=== PATIENT | female | born 1995 | race Caucasian/White ===

== ENCOUNTER 2022-12-01 10:37 | Emergency (ER) | payer OTHER, SELFPAY ==
[2022-12-01 10:49] VITALS: BP 171/107; PULSE 85; RESP 18; TEMP 36.5; O2SAT 99; BMI 43.4
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
[2022-12-01 12:46] LABS: Basophils % 0.3 %; Eosinophils # 0.1 10^3/uL (0.0-0.8); Eosinophils % 0.8 %; Hemoglobin 14.2 g/dL (11.5-15.3); Lymphocytes # 2.6 10^3/uL (0.8-4.8); Lymphocytes % 22.1 %; Mean Corpuscular HGB Conc 31.6 g/dL (30.0-36.0); Mean Corpuscular Hemoglobin 27.2 pg (28.0-34.0); Mean Platelet Volume 8.7 fL (7.4-10.4); Monocytes # 0.5 10^3/uL (0.2-0.9); Monocytes % 4.5 %; Neutrophils # 8.48 10^3/uL (1.8-7.7); Nucleated Red Blood Cells % 0 %; Platelet Count 324 10^3/cmm (130-400); Red Blood Count 5.23 10^6/uL (4.1-5.3); White Blood Count 11.8 10^3/uL (4.0-10.0)
[2022-12-01 12:53] LABS: Add Urine Microscopic? YES; Bilirubin Urine Neg (Negative); Blood Urine 2+ (Negative); Glucose Urine UA Norm (Normal); Ketones Urine Negative (Negative); Leukocyte Esterase Urine Negative (Negative); Nitrate Urine Negative (Negative); Protein Urine Neg (Negative); Urine Appearance Clear (CLEAR); Urine Color Yellow (Yellow); Urobilinogen Urine Norm (Negative); pH Urine 7 (5-7)
[2022-12-01 12:55] LABS: Bacteria Urine TRACE /hpf; Mucus Urine TRACE /hpf; RBC Urine 0-4 /hpf (0-2); Squamous Epithelial Cell Urine RARE /hpf (0-5)
[2022-12-01 12:56] LABS: Add Urine Culture? No
--- NOTE | 2022-12-01 13:04 | USR_ITS ---
PROCEDURE INFORMATION: Exam: US First Trimester, Transabdominal Exam date and time: 12/01/2022 1:47 PM Age: 27 years old Clinical indication: Lmp or gestational age (in weeks): 09/08/2022; Other: Vag bleed; ; Additional info: Cramping, vaginal discharge with clots LABS AND CLINICAL REPORTS: Last menstrual period start date: 09/08/2022 Gestational age (Established): 12 w 0 d Estimated due date (Established): 06/15/2023 TECHNIQUE: Imaging protocol: Real-time transabdominal obstetrical ultrasound of the maternal pelvis and a first trimester , less than 14 weeks 0 days, with image documentation. COMPARISON: No relevant prior studies available. FINDINGS: GESTATION: Gestation: No sign of intrauterine . No visible ectopic. Embryonic/ heart rate: Sought but not present. Amniotic fluid: Sought but not present. MATERNAL: Uterus: The uterus is anteverted. Contours are normal. The uterus measures 9.6 x 4.7 x 3.5 cm. The endometrium is thin and homogeneous. Endometrial stripe thickness is 3 mm. There is no intrauterine gestational sac. Cervix: Unremarkable. Right adnexa: Right ovary measures 3.4 cm x 2.2 cm x 2.7 cm. The right ovary is morphologically normal. Left adnexa: Left ovary measures 3.6 cm x 2.5 cm x 3 cm. The left ovary is morphologically normal. Urinary bladder: The bladder is unremarkable. US/US OB <= 14 weeks fetus [id number] IMPRESSION: No intrauterine gestational sac. Spontaneous versus ectopic . No ectopic is visible. Ectopic is not excluded. Recommend continued follow-up beta hCG and repeat ultrasound if necessary for confirmation.
[2022-12-01 13:24] VITALS: O2SAT 98
--- NOTE | 2022-12-05 11:12 | DCPLANNER ---
Addendum entered by Torie Bowens 12/05/22 13:13: shopper marketing manager called patient due to no primary care physician - no answer at this time Original Note: 12.04.22 - TCM called patient due to no primary care physician - no answer at this time
== END 2022-12-01 15:12 | disposition home or self-care (01) ==
PROVIDERS: Emergency Medicine; Emergency Provider Emergency Medicine
DX: O26.851 Spotting complicating pregnancy, first trimester (principal); O20.0 Threatened abortion; Z3A.08 8 weeks gestation of pregnancy
CPT/HCPCS: 36415; 76801; 81001; 84702; 85025; 86850; 86900; 87210; 87491; 87591; 99284

== ENCOUNTER → 2022-12-05 08:02 | Outpatient (BNVA) | payer OTHER, SELFPAY | PROVIDERS: Visit Provider Nurse Practitioner Women's Health | DX: N97.0 Female infertility associated with anovulation | CPT/HCPCS: 81000; 81025; 84702 ==

== ENCOUNTER → 2022-12-09 11:00 | Outpatient (BNVA) | payer OTHER, SELFPAY | PROVIDERS: Visit Provider Nurse Practitioner Women's Health | DX: O03.9 Complete or unspecified spontaneous abortion without complication (principal) | CPT/HCPCS: 84702 ==

== ENCOUNTER → 2022-12-18 12:12 | Outpatient (BNVA) | payer OTHER, SELFPAY | PROVIDERS: Visit Provider Nurse Practitioner Women's Health | DX: N97.9 Female infertility, unspecified (principal) | CPT/HCPCS: 76830 ==

== ENCOUNTER → 2023-01-29 15:00 | Outpatient (BNVA) | payer OTHER, SELFPAY | PROVIDERS: Visit Provider Nurse Practitioner Women's Health | DX: N97.0 Female infertility associated with anovulation (principal) | CPT/HCPCS: 84144 ==

== ENCOUNTER → 2023-02-06 09:40 | Outpatient (BNVA) | payer OTHER, SELFPAY | PROVIDERS: Visit Provider Obstetrics & Gynecology | DX: N92.6 Irregular menstruation, unspecified (principal) | CPT/HCPCS: 83525; 84443 ==